=== PATIENT | male | born 1945 | race Caucasian/White ===

== ENCOUNTER 2020-01-13 19:14 | Outpatient (CLI) | payer MEDICARE | END 2020-01-13 23:59 | disposition short-term general hospital (02) | LOC: EMS 19:14 | PROVIDERS: ATTEND Surgery | DX: R07.89 Other chest pain (principal); R53.1 Weakness; R03.0 Elevated blood-pressure reading, without diagnosis of hypertension | CPT/HCPCS: A0425; A0427; A0888 ==

== ENCOUNTER 2020-08-06 13:59 | Emergency (ER) | payer MEDICARE ==
--- NOTE | 2020-08-06 14:08 | ED Physician Documentation ---
PD HPI LOWER EXT INJURY - Stated complaint Stated Complaint: RT LEG PX - Chief complaint Chief Complaint: Ext Problem - History obtained from History obtained from: Patient - History of Present Illness PD HPI LOW EXT INJURY LOCATION: Right, Lower leg, Calf Type of injury: Other (he was helping push a car and was leaning into it when felt an abrupt pain right calf that felt like someone whacked him. Pain with walking but able to flex and extend at ankle. No current antibiotics.). No: Fall, Twist Timing - onset: Today Timing - details: Abrupt onset, Still present Worsened by: Palpating Associated symptoms: Weakness (for plantarflexion). No: Numbness Similar symptoms before: Has not had sx before Review of Systems Constitutional: denies: Fever, Chills Nose: denies: Rhinorrhea / runny nose, Congestion Throat: denies: Sore throat Respiratory: denies: Cough Skin: denies: Abrasion (s), Laceration (s) Neurologic: denies: Focal weakness, Numbness Endocrine: denies: Weight loss, Easy bruising / bleeding PD PAST MEDICAL HISTORY - Past Medical History Cardiovascular: None, Hypertension - Present Medications Home Medications: Ambulatory Orders Medication Instructions Recorded Confirmed Allopurinol [Zyloprim] 300 mg PO DAILY 08/06/20 08/06/20 Aspirin [Aspirin EC] 81 mg PO DAILY 08/06/20 08/06/20 Atorvastatin [Lipitor] 10 mg PO DAILY 08/06/20 08/06/20 Beclomethasone 40 Mcg [Qvar 40] 1 inh PO BID 08/06/20 08/06/20 Fexofenadine/Pseudoephedrine 1 tab PO DAILY 08/06/20 08/06/20 [-D 12 Hour Tablet] Hydrochlorothiazide 12.5 mg PO DAILY 08/06/20 08/06/20 Lisinopril [Zestril] 40 mg PO DAILY 08/06/20 08/06/20 Metoprolol Tartrate [Lopressor] 25 mg PO DAILY 08/06/20 08/06/20 Omeprazole 20 mg PO BID 08/06/20 08/06/20 Tamsulosin [Flomax] 0.4 mg PO DAILY 08/06/20 08/06/20 amLODIPine [Norvasc] 5 mg PO DAILY 08/06/20 08/06/20 gemfibroziL [Lopid] 600 mg PO BID 08/06/20 08/06/20 - Allergies Allergies/Adverse Reactions: Allergies Allergy/AdvReac Type Severity Reaction Status Date / Time Penicillins Allergy Dizziness Verified 08/06/20 14:03 PD ED PE NORMAL - Vitals Vital signs reviewed: Yes - General General: Alert and oriented X 3, No acute distress, Well developed/nourished - Derm Derm: Normal color, Warm and dry, No rash - Extremities Extremities: Other (right calf with tenderness at mid calf with some softness of the muscle at that spot. No bruising. The tendon portion (Achilles) is not tender and is firm. He can plantar flex against resistance though hurts in mus winifred. Not tender at Achilles itself. Mild tender at anterior heard/fibula at midcalf. ) Results - Vitals Vitals: Vital Signs - 24 hr 08/06/20 08/06/20 14:03 15:08 Temperature 36.5 C 36.5 C Heart Rate 88 80 Respiratory 18 18 Rate Blood Pressure 148/49 H 160/79 H O2 Saturation 98 99 Oxygen O2 Source Room air - Rads (name of study) right tib/fib Radiology: Prelim report reviewed (no fractures), See rad report PD MEDICAL DECISION MAKING - ED course Complexity details: considered differential (clinically has intact Achilles tendon; the pain/tender is at distal muscle of the calf, above the tendon part. ), d/w patient Departure - Departure Disposition: 01 Home, Self Care Clinical Impression: Muscle tear, Strain of right calf muscle Condition: Stable Record reviewed to determine appropriate education?: Yes Instructions: ED Strain Muscle Ext Follow-Up: Giovanni Jolly MD [Primary Care Provider] - Guillermo Miller MD [Provider Admit Priv/Credential] - Comments: Your Achilles tendon feels still intact. You appear to of torn part of the muscle in the mid calf and this should heal up adequately without needing repair. However you will need to have an ankle brace to reduce the amount of muscle motion and it will take likely 3 to 4 weeks for healing. Use your crutches at home for partial weightbearing if needed for comfort. Elevate rest and ice the calf area frequently tonight and tomorrow to reduce swelling. Anticipate some bruising to show up in the calf and around the ankle in the next few days. Tylenol ibuprofen as needed for pains. Call the orthopedic office for a follow-up appointment. Follow-up in about a week to ensure it started to heal well enough. Discharge Date/Time: 08/06/20 15:09
[2020-08-06 15:09] VITALS: BP 160/79
--- NOTE | 2020-08-06 15:16 | XRAY Report ---
PROCEDURE: Tib/Fib RT INDICATIONS: mid/lower calf pain when pushing car TECHNIQUE: 2 views of the tibia and fibula were acquired. COMPARISON: None. FINDINGS: Bones: No fractures or dislocations. 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 No suspicious bony lesions. Soft tissues: No suspicious soft tissue calcifications or masses. IMPRESSION: No right lower leg fracture or dislocation. 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 Reviewed by: Alejandro Price MD on 08/06/2020 3:14 PM PST Approved by: Alejandro Price MD on 08/06/2020 3:14 PM PST Station ID: [id number]
== END 2020-08-06 15:09 | disposition home or self-care (01) ==
LOC: ED 13:59
DX: S86.911A Strain of unspecified muscle(s) and tendon(s) at lower leg level, right leg, initial encounter (principal); X50.9XXA Other and unspecified overexertion or strenuous movements or postures, initial encounter; I10 Essential (primary) hypertension
CPT/HCPCS: 99283